=== PATIENT | female | born 1955 | race African-American/Black ===

== ENCOUNTER 2022-07-11 21:17 | Inpatient (IN) | payer MEDICARE, MEDICAID ==
[~2022-07-11] VITALS: Ht 157.5 cm; Wt 180.5 kg
[~2022-07-11 21:17] MED LIST: FURO20TA4 PO; HYDR-459 PO; INSU100V37 SQ; SULF1TAB47 PO; TC025C15 TOP; TRAZ-252 PO
[2022-07-11] MEDS ORDERED: SODIUM CHLORIDE 0.9% 1,000 ML IV ONE (22:00)
[2022-07-11 22:45] LABS: BASOPHILS % 0.6 % (0.0-2.0); EOSINOPHILS % 1.1 % (0.0-5.0); HEMATOCRIT. 37.6 % (36.0-48.0); HEMOGLOBIN. 12.1 g/dL (12.0-16.0); LYMPHOCYTES % 13.3 % (20.0-50.0); MEAN CORPUSCULAR HEMOGLOBIN 25.8 pg (28.0-32.0); MEAN CORPUSCULAR VOLUME 80.4 fL (81.0-99.0); MONOCYTES % 5.4 % (2.0-8.0); NEUTROPHILS % 79.6 % (40.0-76.0); PLATELET 365 x1000/uL (130-400); RED BLOOD CELL COUNT 4.67 mill/uL (4.2-5.4)
[2022-07-11 22:53] LABS: CHLORIDE 101 mEq/L (98-107)
[2022-07-11 23:13] LABS: ETHANOL BLOOD < 10 mg/dL
[2022-07-11 23:16] LABS: CARBAMAZEPINE < 0.5 ug/mL (4-12)
[2022-07-11] MEDS ORDERED: LEVETIRACETAM 1000MG PREMIX 100 ML IV NR (23:45)
[2022-07-12] MEDS ORDERED: MAGNESIUM/ALUMINUM HYDROXIDE/SIMETHICONE 30ML UDC PO PRN (07:00)
[2022-07-12] MEDS ORDERED: KETOROLAC 15MG/ML VIAL IV PRN (07:00)
[2022-07-12] MEDS ORDERED: ACETAMINOPHEN 325MG TABLET PO PRN ×2 (07:00)
[2022-07-12] MEDS ORDERED: ENOXAPARIN 40MG/0.4ML SYR SUBCUT SCH (07:00)
[2022-07-12] MEDS ORDERED: IPRATROPIUM/ALBUTEROL 0.5-3(2.5)MG/3ML NEB NEB PRN (07:00)
[2022-07-12] MEDS ORDERED: DOCUSATE SODIUM 100MG CAPSULE PO PRN (07:00)
[2022-07-12] MEDS ORDERED: DEXTROSE 50% WATER 50ML SYRINGE IV PRN (07:00)
[2022-07-12] MEDS ORDERED: ONDANSETRON HCL 4MG/2ML INJ IV PRN (07:00)
[2022-07-12] MEDS ORDERED: NITROGLYCERIN 0.4MG TABLET SL SL PRN (07:00)
[2022-07-12] MEDS ORDERED: GUAIFENESIN 200MG/10ML SUGAR FREE UDC PO PRN (07:00)
[2022-07-12] MEDS: INSULIN LISPRO 100 UNITS/ML SUBCUT SCH ×3 (07:50→21:00)
[2022-07-12] MEDS: ASPIRIN 325MG EC TABLET PO SCH (09:00)
[2022-07-12] MEDS: BLOOD SUGAR DIAGNOSTIC STRIP TEST SCH ×2 (09:00→21:42)
[2022-07-12] MEDS: LEVETIRACETAM 500MG PREMIX 100 ML IV SCH ×2 (09:00→21:56)
[2022-07-12] MEDS: ENOXAPARIN 40MG/0.4ML SYR SUBCUT SCH ×2 (09:00→21:45)
[2022-07-12] MEDS: FAMOTIDINE 20MG TABLET PO SCH ×2 (09:00→21:44)
[2022-07-12] MEDS: LISINOPRIL 10MG TABLET PO SCH ×2 (09:00→21:44)
[2022-07-12 10:56] LABS: HDL CHOLESTEROL 44 mg/dL (40-59); LDL CHOLESTEROL 78 mg/dL (5-100); T4 FREE 1.92 ng/dL (0.76-1.46); TOTAL IRON BINDING CAPACITY 303 ug/dL (250-450)
[2022-07-12 11:31] LABS: FOLIC ACID (FOLATE) SERUM 13.9 ng/mL (>5.38)
[2022-07-12 12:00] VITALS: BP 151/68
[2022-07-12 15:45] VITALS: BP 151/68
[2022-07-12 16:00] VITALS: BP 146/69
[2022-07-12 20:00] VITALS: BP 188/80
[2022-07-12] MEDS ORDERED: ALBUTEROL (0.083%) 2.5MG/3ML NEB HHN PRN (20:15)
[2022-07-12] MEDS ORDERED: IPRATROPIUM BROMIDE (0.02%) 0.5MG/2.5ML NEB HHN PRN (20:15)
[2022-07-12] MEDS: METHIMAZOLE 5MG TABLET PO SCH (21:44)
[2022-07-12] MEDS: CLONIDINE 0.1MG TABLET PO PRN (21:46)
[2022-07-13] VITALS: BP 163/85
[2022-07-13 04:00] VITALS: BP 160/57
[2022-07-13] MEDS: BLOOD SUGAR DIAGNOSTIC STRIP TEST SCH ×3 (06:40→21:39)
[2022-07-13] MEDS: METHIMAZOLE 5MG TABLET PO SCH ×2 (06:40→23:24)
[2022-07-13] MEDS: INSULIN LISPRO 100 UNITS/ML SUBCUT SCH ×5 (07:40→21:00)
[2022-07-13 08:00] VITALS: BP 153/89
[2022-07-13] MEDS: LEVETIRACETAM 500MG PREMIX 100 ML IV SCH ×3 (09:00→21:30)
[2022-07-13] MEDS: ASPIRIN 325MG EC TABLET PO SCH (10:17)
[2022-07-13] MEDS: FAMOTIDINE 20MG TABLET PO SCH ×2 (10:17→21:33)
[2022-07-13] MEDS: ENOXAPARIN 40MG/0.4ML SYR SUBCUT SCH ×2 (10:18→21:32)
[2022-07-13 12:00] VITALS: BP 139/67
[2022-07-13 14:27] LABS: CHLORIDE 102 mEq/L (98-107)
[2022-07-13 16:00] VITALS: BP 136/58
[2022-07-13 17:40] LABS: BASOPHILS % 0.4 % (0.0-2.0); HEMATOCRIT. 33.4 % (36.0-48.0); HEMOGLOBIN. 10.8 g/dL (12.0-16.0); MEAN CORPUSCULAR HEMOGLOBIN 25.8 pg (28.0-32.0); MEAN CORPUSCULAR VOLUME 80.1 fL (81.0-99.0); MEAN PLATELET VOLUME 8.2 fl (7.4-10.4); MONOCYTES % 6.6 % (2.0-8.0); PLATELET 345 x1000/uL (130-400); RED BLOOD CELL COUNT 4.16 mill/uL (4.2-5.4); RED CELL DISTRIBUTION WIDTH 16.7 % (11.6-14.6)
[2022-07-13 17:50] LABS: CREATINE KINASE 32 IU/L (26-192); CREATINE KINASE MB FRACTION < 1.0 ng/mL (0.5-3.6)
[2022-07-13] MEDS: SODIUM HYPOCHLORITE SOLUTION (0.5%)FULL STRENGTH TOP SCH ×2 (20:00→21:29)
[2022-07-13 20:37] VITALS: BP 140/65
[2022-07-13] MEDS: LISINOPRIL 20MG TABLET PO SCH (21:31)
[2022-07-14 00:39] VITALS: BP 125/65
[2022-07-14 04:00] VITALS: BP 170/56
[2022-07-14] MEDS: METHIMAZOLE 5MG TABLET PO SCH ×3 (05:58→20:50)
[2022-07-14] MEDS: BLOOD SUGAR DIAGNOSTIC STRIP TEST SCH ×4 (05:58→20:36)
[2022-07-14] MEDS: INSULIN LISPRO 100 UNITS/ML SUBCUT SCH ×7 (07:40→20:47)
[2022-07-14 08:01] VITALS: BP 131/55
[2022-07-14] MEDS: FAMOTIDINE 20MG TABLET PO SCH ×2 (08:23→20:47)
[2022-07-14] MEDS: SODIUM HYPOCHLORITE SOLUTION (0.5%)FULL STRENGTH TOP SCH ×2 (08:23→08:25)
[2022-07-14] MEDS: ASPIRIN 325MG EC TABLET PO SCH (08:23)
[2022-07-14] MEDS: LEVETIRACETAM 500MG PREMIX 100 ML IV SCH ×2 (08:23→20:46)
[2022-07-14] MEDS: LISINOPRIL 20MG TABLET PO SCH ×2 (08:24→20:48)
[2022-07-14] MEDS: ENOXAPARIN 40MG/0.4ML SYR SUBCUT SCH ×3 (08:54→20:50)
[2022-07-14 11:50] VITALS: BP 150/42
[2022-07-14 15:42] VITALS: BP 138/60
[2022-07-14 20:00] VITALS: BP 135/61
[2022-07-15] VITALS: BP 149/65
[2022-07-15 04:00] VITALS: BP 184/66
[2022-07-15 04:30] VITALS: BP 170/82
[2022-07-15] MEDS: METHIMAZOLE 5MG TABLET PO SCH ×2 (05:29→13:56)
[2022-07-15] MEDS: CLONIDINE 0.1MG TABLET PO PRN (05:29)
[2022-07-15] MEDS: BLOOD SUGAR DIAGNOSTIC STRIP TEST SCH ×2 (06:51→12:32)
[2022-07-15] MEDS: INSULIN LISPRO 100 UNITS/ML SUBCUT SCH ×4 (07:40→13:10)
[2022-07-15 08:00] VITALS: BP 148/71
[2022-07-15] MEDS: LISINOPRIL 20MG TABLET PO SCH ×2 (09:00→09:47)
[2022-07-15] MEDS: ASPIRIN 325MG EC TABLET PO SCH ×2 (09:00→09:47)
[2022-07-15] MEDS: FAMOTIDINE 20MG TABLET PO SCH ×2 (09:00→09:47)
[2022-07-15] MEDS: ENOXAPARIN 40MG/0.4ML SYR SUBCUT SCH ×2 (09:00→09:48)
[2022-07-15] MEDS: SODIUM HYPOCHLORITE SOLUTION (0.5%)FULL STRENGTH TOP SCH ×2 (09:48)
[2022-07-15] MEDS: LEVETIRACETAM 500MG PREMIX 100 ML IV SCH (09:48)
[2022-07-15 15:10] VITALS: BP 140/80
== END 2022-07-15 15:55 | disposition home or self-care (01) | DRG 100 ==
LOC: ER 21:17 → 7WST 07-12 04:25 → ER 07-12 10:56
PROVIDERS: ADMIT Internal Medicine; ATTEND Internal Medicine
DX: G40.909 Epilepsy, unspecified, not intractable, without status epilepticus (principal); E43 Unspecified severe protein-calorie malnutrition; G92.8 Other toxic encephalopathy; I16.1 Hypertensive emergency; Z68.45 Body mass index [BMI] 70 or greater, adult; L97.409 Non-pressure chronic ulcer of unspecified heel and midfoot with unspecified severity; E11.9 Type 2 diabetes mellitus without complications; I10 Essential (primary) hypertension; E83.51 Hypocalcemia; E78.00 Pure hypercholesterolemia, unspecified; E03.9 Hypothyroidism, unspecified; E11.42 Type 2 diabetes mellitus with diabetic polyneuropathy; E11.621 Type 2 diabetes mellitus with foot ulcer; Z79.4 Long term (current) use of insulin; Z74.01 Bed confinement status
CPT/HCPCS: 36415; 71045; 73630; 80053; 80061; 80156; 80165; 80185; 80320; 82550; 82553; 82607; 82746; 82962; 83036; 83540; 83550; 83735; 84100; 84439; 84443; 84484; 85025; 93923; 93970; 99291; J1650; J1815; J1953; J7030; A4315; G0480

== ENCOUNTER 2022-07-25 00:37 | Inpatient (IN) | payer MEDICARE, MEDICAID ==
[~2022-07-25] VITALS: Ht 157.5 cm; Wt 126.1 kg
[2022-07-25] MEDS ORDERED: ONDANSETRON HCL 4MG/2ML INJ IV STA (00:57)
[2022-07-25] MEDS ORDERED: LEVETIRACETAM 1000MG PREMIX 100 ML IV ONE (01:00)
[2022-07-25 02:18] LABS: BASOPHILS % 0.7 % (0.0-2.0); HEMATOCRIT. 38.3 % (36.0-48.0); HEMOGLOBIN. 12.2 g/dL (12.0-16.0); LYMPHOCYTES % 8.1 % (20.0-50.0); MEAN CORPUSCULAR HEMOGLOBIN 25.6 pg (28.0-32.0); MEAN CORPUSCULAR VOLUME 80.6 fL (81.0-99.0); MEAN PLATELET VOLUME 8.4 fl (7.4-10.4); MONOCYTES % 8.2 % (2.0-8.0); PLATELET 383 x1000/uL (130-400); RED BLOOD CELL COUNT 4.75 mill/uL (4.2-5.4); RED CELL DISTRIBUTION WIDTH 17.6 % (11.6-14.6)
[2022-07-25 02:22] LABS: CHLORIDE 102 mEq/L (98-107)
[2022-07-25] MEDS ORDERED: DEXTROSE 50% WATER 50ML SYRINGE IV NR (03:00)
[2022-07-25 04:53] LABS: CLARITY URINE TURBID (CLEAR); COLOR URINE DARK YELLOW (YELLOW); KETONES URINE TRACE (NEGATIVE); LEUKOCYTE ESTERASE URINE 2+ (NEGATIVE); NITRITE URINE NEGATIVE (NEGATIVE); OCCULT BLOOD URINE 3+ (NEGATIVE); PH URINE 5.5 (4.5-8.0); PROTEIN URINE 4+ (NEGATIVE); SPECIFIC GRAVITY URINE 1.028 (1.005-1.030)
[2022-07-25] MEDS ORDERED: MAGNESIUM/ALUMINUM HYDROXIDE/SIMETHICONE 30ML UDC PO PRN (07:15)
[2022-07-25] MEDS ORDERED: ACETAMINOPHEN 325MG TABLET PO PRN (07:15)
[2022-07-25] MEDS ORDERED: GUAIFENESIN 200MG/10ML SUGAR FREE UDC PO PRN (07:15)
[2022-07-25] MEDS ORDERED: IPRATROPIUM/ALBUTEROL 0.5-3(2.5)MG/3ML NEB NEB PRN (07:15)
[2022-07-25] MEDS ORDERED: NA PHOS,M-B/NA PHOS,DI-BA ENEMA 118ML PR PRN (07:15)
[2022-07-25] MEDS ORDERED: DOCUSATE SODIUM 100MG CAPSULE PO PRN (07:15)
[2022-07-25] MEDS ORDERED: DEXTROSE 50% WATER 50ML SYRINGE IV PRN (07:15)
[2022-07-25] MEDS ORDERED: NITROGLYCERIN 0.4MG TABLET SL SL PRN (07:15)
[2022-07-25] MEDS ORDERED: LEVETIRACETAM 500MG PREMIX 100 ML IV SCH (09:00)
[2022-07-25] MEDS ORDERED: SODIUM CHLORIDE 0.9% 1000ML BAG (SEPSIS BOLUS) IV ONE (09:45)
[2022-07-25] MEDS: INSULIN GLARGINE 100 UNITS/ML SUBCUT SCH ×2 (10:00→12:31)
[2022-07-25] MEDS ORDERED: PIPERACILLIN/TAZ 3.375G PREMIX 50 ML IV NR (10:00)
[2022-07-25 10:30] VITALS: BP 151/72
[2022-07-25] MEDS ORDERED: VANCOMYCIN 2,000 MG in DEXT 5% WATER 500 ML IV SCH (11:00)
[2022-07-25] MEDS: BLOOD SUGAR DIAGNOSTIC STRIP TEST SCH ×3 (11:40→21:11)
[2022-07-25] MEDS: INSULIN LISPRO 100 UNITS/ML SUBCUT SCH ×3 (11:40→20:14)
[2022-07-25] MEDS: ZINC SULFATE 220 MG ( 50 ) CAPSULE PO SCH (12:25)
[2022-07-25] MEDS: LISINOPRIL 20MG TABLET PO SCH ×2 (12:26→21:00)
[2022-07-25] MEDS: ASPIRIN 325MG EC TABLET PO SCH (12:26)
[2022-07-25] MEDS: ENOXAPARIN 40MG/0.4ML SYR SUBCUT SCH (12:27)
[2022-07-25] MEDS: ASCORBIC ACID 500 MG TABLET PO SCH ×2 (12:29→21:00)
[2022-07-25] MEDS: FAMOTIDINE 20MG TABLET PO SCH (12:29)
[2022-07-25] MEDS: PIPERACILLIN/TAZOBACTAM 3.375G in DEXT 5% WATER 50ML IV SCH (16:30)
[2022-07-25 19:00] LABS: *AMPHETAMINES SCREEN URINE NEGATIVE (NEGATIVE); *BARBITURATES SCREEN URINE NEGATIVE (NEGATIVE); *BENZODIAZEPINES SCREEN URINE NEGATIVE (NEGATIVE); *COCAINE SCREEN URINE NEGATIVE (NEGATIVE); CANNABINOID URINE SCREEN NEGATIVE (NEGATIVE); METHADONE URINE SCREEN NEGATIVE (NEGATIVE); OPIATES URINE SCREEN NEGATIVE (NEGATIVE); PHENCYCLIDINE URINE SCREEN NEGATIVE (NEGATIVE)
[2022-07-25 20:00] VITALS: BP 157/88
[2022-07-25] MEDS ORDERED: ZOLPIDEM TARTRATE 5MG TABLET PO PRN (21:00)
[2022-07-25] MEDS ORDERED: IPRATROPIUM BROMIDE (0.02%) 0.5MG/2.5ML NEB HHN PRN (23:00)
[2022-07-25] MEDS ORDERED: ALBUTEROL (0.083%) 2.5MG/3ML NEB HHN PRN (23:00)
[2022-07-25] MEDS: LEVETIRACETAM 500MG PREMIX 100 ML IV SCH (23:20)
[2022-07-26] VITALS: BP 158/71
[2022-07-26] MEDS: PIPERACILLIN/TAZOBACTAM 3.375G in DEXT 5% WATER 50ML IV SCH ×4 (01:45→22:43)
[2022-07-26 04:00] VITALS: BP 129/64
[2022-07-26 06:14] LABS: CHLORIDE 99 mEq/L (98-107)
[2022-07-26 06:23] LABS: BASOPHILS % 0.7 % (0.0-2.0); EOSINOPHILS % 0.6 % (0.0-5.0); HEMATOCRIT. 36.8 % (36.0-48.0); HEMOGLOBIN. 11.8 g/dL (12.0-16.0); LYMPHOCYTES % 20.2 % (20.0-50.0); MEAN CORPUSCULAR HEMOGLOBIN 25.7 pg (28.0-32.0); MEAN CORPUSCULAR VOLUME 80.1 fL (81.0-99.0); MEAN PLATELET VOLUME 8.3 fl (7.4-10.4); MONOCYTES % 7.9 % (2.0-8.0); NEUTROPHILS % 70.6 % (40.0-76.0); PLATELET 326 x1000/uL (130-400); RED CELL DISTRIBUTION WIDTH 17.4 % (11.6-14.6)
[2022-07-26 06:36] LABS: CREATINE KINASE 48 IU/L (26-192); CREATINE KINASE MB FRACTION 1.5 ng/mL (0.5-3.6); PHOSPHORUS 3.8 mg/dL (2.5-4.9)
[2022-07-26] MEDS: INSULIN LISPRO 100 UNITS/ML SUBCUT SCH ×7 (06:40→20:44)
[2022-07-26] MEDS: BLOOD SUGAR DIAGNOSTIC STRIP TEST SCH ×4 (06:53→20:45)
[2022-07-26 08:00] VITALS: BP 117/61
[2022-07-26] MEDS: LEVETIRACETAM 500MG PREMIX 100 ML IV SCH ×2 (09:39→20:46)
[2022-07-26] MEDS: ASCORBIC ACID 500 MG TABLET PO SCH ×2 (09:42→20:45)
[2022-07-26] MEDS: ZINC SULFATE 220 MG ( 50 ) CAPSULE PO SCH (09:42)
[2022-07-26] MEDS: ASPIRIN 325MG EC TABLET PO SCH (09:42)
[2022-07-26] MEDS: FAMOTIDINE 20MG TABLET PO SCH (09:43)
[2022-07-26] MEDS: LISINOPRIL 20MG TABLET PO SCH ×2 (09:52→20:45)
[2022-07-26] MEDS: INSULIN GLARGINE 100 UNITS/ML SUBCUT SCH (10:00)
[2022-07-26] MEDS ORDERED: POTASSIUM CHLORIDE 20MEQ TABLET SR PO NR (11:00)
[2022-07-26 12:00] VITALS: BP 161/83
[2022-07-26] MEDS: ENOXAPARIN 40MG/0.4ML SYR SUBCUT SCH (13:22)
[2022-07-26 16:00] VITALS: BP 151/81
[2022-07-26 20:00] VITALS: BP 180/76
[2022-07-27] VITALS: BP 149/69
[2022-07-27 04:00] VITALS: BP 149/68
[2022-07-27] MEDS: INSULIN LISPRO 100 UNITS/ML SUBCUT SCH ×7 (06:02→21:00)
[2022-07-27] MEDS: BLOOD SUGAR DIAGNOSTIC STRIP TEST SCH ×4 (06:02→21:33)
[2022-07-27] MEDS: PIPERACILLIN/TAZOBACTAM 3.375G in DEXT 5% WATER 50ML IV SCH ×3 (06:05→22:26)
[2022-07-27 08:00] VITALS: BP 160/73
[2022-07-27] MEDS: INSULIN GLARGINE 100 UNITS/ML SUBCUT SCH (10:00)
[2022-07-27] MEDS: ZINC SULFATE 220 MG ( 50 ) CAPSULE PO SCH (10:29)
[2022-07-27] MEDS: FAMOTIDINE 20MG TABLET PO SCH (10:29)
[2022-07-27] MEDS: ASPIRIN 325MG EC TABLET PO SCH (10:29)
[2022-07-27] MEDS: LISINOPRIL 20MG TABLET PO SCH ×2 (10:30→21:31)
[2022-07-27] MEDS: ASCORBIC ACID 500 MG TABLET PO SCH ×2 (10:30→21:31)
[2022-07-27] MEDS: LEVETIRACETAM 500MG PREMIX 100 ML IV SCH ×2 (10:30→21:33)
[2022-07-27] MEDS: ENOXAPARIN 40MG/0.4ML SYR SUBCUT SCH (10:48)
[2022-07-27] MEDS: SODIUM HYPOCHLORITE SOLUTION (0.5%)FULL STRENGTH TOP SCH (10:48)
[2022-07-27] MEDS ORDERED: LIDOCAINE HCL 4% (40MG/ML) SOLN 50ML TOP NR (11:00)
[2022-07-27 12:00] VITALS: BP 152/60
[2022-07-27] MEDS: SODIUM HYPOCHLORITE 0.125% 473ML SOLUTION TOP SCH (13:54)
[2022-07-27] MEDS ORDERED: VANCOMYCIN 750MG PREMIX 150 ML IV NR (14:00)
[2022-07-27 16:00] VITALS: BP 150/65
[2022-07-27 20:00] VITALS: BP 163/63
[2022-07-28] VITALS: BP 192/99
[2022-07-28] MEDS: CLONIDINE 0.1MG TABLET PO PRN ×2 (00:41→08:36)
[2022-07-28 04:00] VITALS: BP 181/74
[2022-07-28] MEDS: PIPERACILLIN/TAZOBACTAM 3.375G in DEXT 5% WATER 50ML IV SCH ×3 (05:43→22:17)
[2022-07-28] MEDS: BLOOD SUGAR DIAGNOSTIC STRIP TEST SCH ×4 (06:11→21:00)
[2022-07-28] MEDS: INSULIN LISPRO 100 UNITS/ML SUBCUT SCH ×7 (06:12→21:00)
[2022-07-28 08:00] VITALS: BP 185/76
[2022-07-28] MEDS: ZINC SULFATE 220 MG ( 50 ) CAPSULE PO SCH (08:35)
[2022-07-28] MEDS: ASCORBIC ACID 500 MG TABLET PO SCH ×2 (08:35→21:49)
[2022-07-28] MEDS: ASPIRIN 325MG EC TABLET PO SCH (08:35)
[2022-07-28] MEDS: FAMOTIDINE 20MG TABLET PO SCH (08:35)
[2022-07-28] MEDS: LISINOPRIL 20MG TABLET PO SCH ×2 (08:36→21:49)
[2022-07-28] MEDS: SODIUM HYPOCHLORITE 0.125% 473ML SOLUTION TOP SCH (08:37)
[2022-07-28] MEDS: SODIUM HYPOCHLORITE SOLUTION (0.5%)FULL STRENGTH TOP SCH (08:37)
[2022-07-28] MEDS: INSULIN GLARGINE 100 UNITS/ML SUBCUT SCH (10:00)
[2022-07-28] MEDS: LEVETIRACETAM 500MG PREMIX 100 ML IV SCH ×2 (10:20→21:50)
[2022-07-28] MEDS: ENOXAPARIN 40MG/0.4ML SYR SUBCUT SCH (10:59)
[2022-07-28 12:00] VITALS: BP 151/73
[2022-07-28 16:00] VITALS: BP 152/60
[2022-07-28] MEDS ORDERED: VANCOMYCIN 750MG PREMIX 150 ML IV NR (18:00)
[2022-07-28 20:00] VITALS: BP 147/46
[2022-07-29] VITALS: BP 154/64
[2022-07-29 04:00] VITALS: BP 152/62
[2022-07-29] MEDS: PIPERACILLIN/TAZOBACTAM 3.375G in DEXT 5% WATER 50ML IV SCH ×3 (06:05→22:50)
[2022-07-29] MEDS: BLOOD SUGAR DIAGNOSTIC STRIP TEST SCH ×4 (06:37→20:57)
[2022-07-29] MEDS: INSULIN LISPRO 100 UNITS/ML SUBCUT SCH ×7 (06:38→20:58)
[2022-07-29 08:00] VITALS: BP 147/60
[2022-07-29] MEDS: ZINC SULFATE 220 MG ( 50 ) CAPSULE PO SCH (09:06)
[2022-07-29] MEDS: ASCORBIC ACID 500 MG TABLET PO SCH ×2 (09:06→20:47)
[2022-07-29] MEDS: LEVETIRACETAM 500MG PREMIX 100 ML IV SCH ×2 (09:06→20:45)
[2022-07-29] MEDS: ASPIRIN 325MG EC TABLET PO SCH (09:06)
[2022-07-29] MEDS: FAMOTIDINE 20MG TABLET PO SCH (09:08)
[2022-07-29] MEDS: SODIUM HYPOCHLORITE 0.125% 473ML SOLUTION TOP SCH (09:09)
[2022-07-29] MEDS: LISINOPRIL 20MG TABLET PO SCH ×2 (09:13→20:46)
[2022-07-29] MEDS: INSULIN GLARGINE 100 UNITS/ML SUBCUT SCH (10:00)
[2022-07-29 12:00] VITALS: BP 177/60
[2022-07-29] MEDS: ENOXAPARIN 40MG/0.4ML SYR SUBCUT SCH (12:39)
[2022-07-29] MEDS: CLONIDINE 0.1MG TABLET PO PRN (14:00)
[2022-07-29 16:00] VITALS: BP 148/64
[2022-07-29] MEDS: VANCOMYCIN 750MG PREMIX 150 ML IV SCH (18:00)
[2022-07-29 20:00] VITALS: BP 164/79
[2022-07-30] VITALS: BP 164/69
[2022-07-30] MEDS: CLONIDINE 0.1MG TABLET PO PRN ×2 (00:41→05:06)
[2022-07-30 04:00] VITALS: BP 163/80
[2022-07-30] MEDS: PIPERACILLIN/TAZOBACTAM 3.375G in DEXT 5% WATER 50ML IV SCH (05:04)
[2022-07-30] MEDS: BLOOD SUGAR DIAGNOSTIC STRIP TEST SCH ×4 (06:09→21:00)
[2022-07-30] MEDS: INSULIN LISPRO 100 UNITS/ML SUBCUT SCH ×7 (06:25→22:49)
[2022-07-30 08:12] VITALS: BP 166/63
[2022-07-30] MEDS: LISINOPRIL 20MG TABLET PO SCH ×2 (08:20→21:00)
[2022-07-30] MEDS: LEVETIRACETAM 500MG PREMIX 100 ML IV SCH ×2 (08:20→22:48)
[2022-07-30] MEDS: ZINC SULFATE 220 MG ( 50 ) CAPSULE PO SCH (08:20)
[2022-07-30] MEDS: ASCORBIC ACID 500 MG TABLET PO SCH ×2 (08:20→21:00)
[2022-07-30] MEDS: FAMOTIDINE 20MG TABLET PO SCH (08:20)
[2022-07-30] MEDS: ASPIRIN 325MG EC TABLET PO SCH (08:20)
[2022-07-30] MEDS: SODIUM HYPOCHLORITE 0.125% 473ML SOLUTION TOP SCH (08:21)
[2022-07-30] MEDS: SODIUM HYPOCHLORITE SOLUTION (0.5%)FULL STRENGTH TOP SCH (08:21)
[2022-07-30] MEDS: AMLODIPINE 5MG TABLET PO SCH ×2 (10:15→21:00)
[2022-07-30] MEDS: INSULIN GLARGINE 100 UNITS/ML SUBCUT SCH (10:16)
[2022-07-30 12:00] VITALS: BP 123/50
[2022-07-30] MEDS: ENOXAPARIN 40MG/0.4ML SYR SUBCUT SCH (13:01)
[2022-07-30 16:00] VITALS: BP 117/60
[2022-07-30] MEDS: VANCOMYCIN 750MG PREMIX 150 ML IV SCH (18:00)
[2022-07-30 20:00] VITALS: BP 153/71
[2022-07-30] MEDS: ONDANSETRON HCL 4MG/2ML INJ IV PRN (22:47)
[2022-07-30] MEDS: PANTOPRAZOLE SODIUM 40 MG/VIAL IV SCH (22:53)
[2022-07-31] VITALS (8 sets, daily range): BP systolic 100–164; BP diastolic 42–71
[2022-07-31] MEDS: ONDANSETRON HCL 4MG/2ML INJ IV PRN (03:48)
[2022-07-31 06:35] LABS: BASOPHILS % 0.2 % (0.0-2.0); HEMATOCRIT. 29.3 % (36.0-48.0); HEMOGLOBIN. 9.8 g/dL (12.0-16.0); LYMPHOCYTES % 11.2 % (20.0-50.0); MEAN CORPUSCULAR HEMOGLOBIN 26.6 pg (28.0-32.0); MEAN CORPUSCULAR VOLUME 79.9 fL (81.0-99.0); MONOCYTES % 1.9 % (2.0-8.0); NEUTROPHILS % 86.7 % (40.0-76.0); PLATELET 367 x1000/uL (130-400); RED BLOOD CELL COUNT 3.67 mill/uL (4.2-5.4); RED CELL DISTRIBUTION WIDTH 17.5 % (11.6-14.6)
[2022-07-31] MEDS: INSULIN LISPRO 100 UNITS/ML SUBCUT SCH ×7 (06:40→20:54)
[2022-07-31] MEDS: BLOOD SUGAR DIAGNOSTIC STRIP TEST SCH ×4 (06:59→20:54)
[2022-07-31 08:40] LABS: CHLORIDE 105 mEq/L (98-107)
[2022-07-31] MEDS: ASCORBIC ACID 500 MG TABLET PO SCH ×2 (09:01→20:54)
[2022-07-31] MEDS: LEVETIRACETAM 500MG PREMIX 100 ML IV SCH ×2 (09:01→20:59)
[2022-07-31] MEDS: ZINC SULFATE 220 MG ( 50 ) CAPSULE PO SCH (09:01)
[2022-07-31] MEDS: PANTOPRAZOLE SODIUM 40 MG/VIAL IV SCH ×2 (09:01→20:59)
[2022-07-31] MEDS: LISINOPRIL 20MG TABLET PO SCH ×2 (09:02→20:54)
[2022-07-31] MEDS: SODIUM HYPOCHLORITE SOLUTION (0.5%)FULL STRENGTH TOP SCH (09:02)
[2022-07-31] MEDS: AMLODIPINE 5MG TABLET PO SCH ×2 (09:02→20:54)
[2022-07-31] MEDS: SODIUM HYPOCHLORITE 0.125% 473ML SOLUTION TOP SCH (09:02)
[2022-07-31] MEDS: PIPERACILLIN/TAZOBACTAM 3.375 G in DEXTROSE 5% WATER 50 ML IV SCH ×3 (09:51→21:33)
[2022-07-31] MEDS ORDERED: VANCOMYCIN 1.25GM PMX (XELLIA) 250 ML IV SCH (10:00)
[2022-07-31] MEDS: INSULIN GLARGINE 100 UNITS/ML SUBCUT SCH (11:13)
[2022-07-31] MEDS: ACETAMINOPHEN 325MG TABLET PO PRN (14:10)
[2022-07-31] MEDS: SODIUM CHLORIDE 0.9% 1,000 ML IV SCH (18:18)
[2022-07-31 19:25] LABS: TOTAL IRON BINDING CAPACITY 156 ug/dL (250-450)
[2022-07-31] MEDS ORDERED: IOHEXOL-350 100 ML BOTTLE ONE ×2 (20:18→23:17)
[2022-07-31 21:52] LABS: INR 1.2; PROTHROMBIN TIME 12.3 sec (9.6-11.0)
[2022-07-31 21:53] LABS: HEMATOCRIT 21.7 % (36.0-48.0); HEMOGLOBIN 6.9 g/dL (12.0-16.0)
[2022-07-31 22:14] LABS: FERRITIN 139 ng/mL (10-291)
[2022-07-31 22:26] LABS: VITAMIN B12 SERUM 542 pg/mL (211-911)
[2022-08-01] VITALS (9 sets, daily range): BP systolic 122–154; BP diastolic 40–91
[2022-08-01 05:23] LABS: BASOPHILS % 0.3 % (0.0-2.0); EOSINOPHILS % 0.1 % (0.0-5.0); HEMATOCRIT. 26.1 % (36.0-48.0); HEMOGLOBIN. 8.5 g/dL (12.0-16.0); LYMPHOCYTES % 24.5 % (20.0-50.0); MEAN CORPUSCULAR HEMOGLOBIN 26.2 pg (28.0-32.0); MEAN CORPUSCULAR VOLUME 80.3 fL (81.0-99.0); MEAN PLATELET VOLUME 7.7 fl (7.4-10.4); MONOCYTES % 6.2 % (2.0-8.0); NEUTROPHILS % 68.9 % (40.0-76.0); PLATELET 302 x1000/uL (130-400); RED BLOOD CELL COUNT 3.25 mill/uL (4.2-5.4); RED CELL DISTRIBUTION WIDTH 17.1 % (11.6-14.6)
[2022-08-01] MEDS: PIPERACILLIN/TAZOBACTAM 3.375 G in DEXTROSE 5% WATER 50 ML IV SCH ×3 (05:38→22:39)
[2022-08-01 05:49] LABS: INR 1.1; PROTHROMBIN TIME 11.6 sec (9.6-11.0)
[2022-08-01 06:03] LABS: CHLORIDE 103 mEq/L (98-107)
[2022-08-01] MEDS: INSULIN LISPRO 100 UNITS/ML SUBCUT SCH ×7 (06:40→21:14)
[2022-08-01] MEDS: BLOOD SUGAR DIAGNOSTIC STRIP TEST SCH ×4 (06:40→21:14)
[2022-08-01] MEDS: SODIUM CHLORIDE 0.9% 1,000 ML IV SCH ×2 (06:48→21:11)
[2022-08-01] MEDS: ZINC SULFATE 220 MG ( 50 ) CAPSULE PO SCH (09:00)
[2022-08-01] MEDS: ASCORBIC ACID 500 MG TABLET PO SCH ×2 (09:00→21:00)
[2022-08-01] MEDS: AMLODIPINE 5MG TABLET PO SCH ×2 (09:01→21:00)
[2022-08-01] MEDS: LEVETIRACETAM 500MG PREMIX 100 ML IV SCH ×2 (09:01→21:10)
[2022-08-01] MEDS: PANTOPRAZOLE SODIUM 40 MG/VIAL IV SCH ×2 (09:03→21:26)
[2022-08-01] MEDS: LISINOPRIL 20MG TABLET PO SCH ×2 (09:03→21:00)
[2022-08-01] MEDS: INSULIN GLARGINE 100 UNITS/ML SUBCUT SCH (10:00)
[2022-08-01] MEDS ORDERED: VANCOMYCIN 750MG PREMIX 150 ML IV SCH (11:00)
[2022-08-01] MEDS: SODIUM HYPOCHLORITE 0.125% 473ML SOLUTION TOP SCH (11:42)
[2022-08-01] MEDS ORDERED: LIDOCAINE HCL 1% 10 MG/ML 10ML VIAL ONE (16:25)
[2022-08-01] MEDS ORDERED: SODIUM CHLORIDE 0.9% 1,000 ML IV ONE (18:15)
[2022-08-01] MEDS: SUCRALFATE 1 G/10 ML UDC PO SCH (21:00)
[2022-08-02] VITALS: BP 141/69
[2022-08-02 04:00] VITALS: BP 139/56
[2022-08-02] MEDS: INSULIN LISPRO 100 UNITS/ML SUBCUT SCH ×7 (06:20→21:00)
[2022-08-02] MEDS: SUCRALFATE 1 G/10 ML UDC PO SCH ×4 (06:20→20:34)
[2022-08-02] MEDS: BLOOD SUGAR DIAGNOSTIC STRIP TEST SCH ×4 (06:20→21:23)
[2022-08-02] MEDS: PIPERACILLIN/TAZOBACTAM 3.375 G in DEXTROSE 5% WATER 50 ML IV SCH ×3 (06:21→22:46)
[2022-08-02 08:00] VITALS: BP 158/53
[2022-08-02] MEDS: AMLODIPINE 5MG TABLET PO SCH ×2 (09:00→20:34)
[2022-08-02] MEDS: SODIUM HYPOCHLORITE 0.125% 473ML SOLUTION TOP SCH (09:00)
[2022-08-02] MEDS: LISINOPRIL 20MG TABLET PO SCH ×2 (09:00→20:34)
[2022-08-02] MEDS: ZINC SULFATE 220 MG ( 50 ) CAPSULE PO SCH (10:44)
[2022-08-02] MEDS: ACETAMINOPHEN 325MG TABLET PO PRN (10:46)
[2022-08-02] MEDS: ASCORBIC ACID 500 MG TABLET PO SCH ×2 (10:46→20:33)
[2022-08-02] MEDS: SODIUM HYPOCHLORITE SOLUTION (0.5%)FULL STRENGTH TOP SCH ×2 (10:49→10:50)
[2022-08-02] MEDS: LEVETIRACETAM 500MG PREMIX 100 ML IV SCH ×2 (10:49→20:34)
[2022-08-02] MEDS: PANTOPRAZOLE SODIUM 40 MG/VIAL IV SCH ×2 (10:50→20:33)
[2022-08-02] MEDS: INSULIN GLARGINE 100 UNITS/ML SUBCUT SCH (11:51)
[2022-08-02 12:00] VITALS: BP 102/63
[2022-08-02] MEDS: SODIUM CHLORIDE 0.9% 1,000 ML IV SCH ×3 (12:00→23:35)
[2022-08-02 16:00] VITALS: BP 146/72
[2022-08-02 20:00] VITALS: BP 178/75
[2022-08-02] MEDS: ATORVASTATIN CALCIUM 40MG TABLET PO SCH (20:33)
[2022-08-02 22:04] LABS: BASOPHILS % 0.4 % (0.0-2.0); HEMATOCRIT. 22.1 % (36.0-48.0); HEMOGLOBIN. 7.1 g/dL (12.0-16.0); LYMPHOCYTES % 17.2 % (20.0-50.0); MEAN CORPUSCULAR HEMOGLOBIN 26.4 pg (28.0-32.0); MEAN CORPUSCULAR VOLUME 81.9 fL (81.0-99.0); MEAN PLATELET VOLUME 7.9 fl (7.4-10.4); MONOCYTES % 6.4 % (2.0-8.0); PLATELET 278 x1000/uL (130-400); RED CELL DISTRIBUTION WIDTH 17.1 % (11.6-14.6)
[2022-08-03] VITALS: BP 169/57
[2022-08-03] MEDS: CLONIDINE 0.1MG TABLET PO PRN (01:27)
[2022-08-03 04:00] VITALS: BP 169/75
[2022-08-03] MEDS: PIPERACILLIN/TAZOBACTAM 3.375 G in DEXTROSE 5% WATER 50 ML IV SCH ×3 (05:33→22:36)
[2022-08-03] MEDS: SUCRALFATE 1 G/10 ML UDC PO SCH ×4 (06:37→21:09)
[2022-08-03] MEDS: INSULIN LISPRO 100 UNITS/ML SUBCUT SCH ×6 (06:46→21:00)
[2022-08-03] MEDS: BLOOD SUGAR DIAGNOSTIC STRIP TEST SCH ×4 (06:46→21:00)
[2022-08-03 08:00] VITALS: BP 129/39
[2022-08-03] MEDS: LISINOPRIL 20MG TABLET PO SCH ×2 (09:55→21:09)
[2022-08-03] MEDS: ASCORBIC ACID 500 MG TABLET PO SCH ×2 (09:55→21:09)
[2022-08-03] MEDS: ZINC SULFATE 220 MG ( 50 ) CAPSULE PO SCH (09:55)
[2022-08-03] MEDS: LEVETIRACETAM 500MG PREMIX 100 ML IV SCH ×2 (09:55→21:53)
[2022-08-03] MEDS: PANTOPRAZOLE SODIUM 40 MG/VIAL IV SCH ×2 (09:55→21:10)
[2022-08-03] MEDS: SODIUM HYPOCHLORITE 0.125% 473ML SOLUTION TOP SCH (09:56)
[2022-08-03] MEDS: SODIUM HYPOCHLORITE SOLUTION (0.5%)FULL STRENGTH TOP SCH (09:56)
[2022-08-03] MEDS: AMLODIPINE 5MG TABLET PO SCH ×2 (09:56→21:10)
[2022-08-03] MEDS: INSULIN GLARGINE 100 UNITS/ML SUBCUT SCH (10:00)
[2022-08-03 10:52] LABS: BASOPHILS % 0.4 % (0.0-2.0); EOSINOPHILS % 1.1 % (0.0-5.0); HEMATOCRIT. 23.2 % (36.0-48.0); HEMOGLOBIN. 7.7 g/dL (12.0-16.0); LYMPHOCYTES % 19.1 % (20.0-50.0); MEAN CORPUSCULAR HEMOGLOBIN 26.9 pg (28.0-32.0); MEAN CORPUSCULAR VOLUME 81.5 fL (81.0-99.0); MEAN PLATELET VOLUME 7.9 fl (7.4-10.4); MONOCYTES % 5.7 % (2.0-8.0); NEUTROPHILS % 73.7 % (40.0-76.0); PLATELET 301 x1000/uL (130-400); RED BLOOD CELL COUNT 2.85 mill/uL (4.2-5.4); RED CELL DISTRIBUTION WIDTH 17.3 % (11.6-14.6)
[2022-08-03 12:00] VITALS: BP 128/44
[2022-08-03] MEDS: SODIUM CHLORIDE 0.9% 1,000 ML IV SCH (13:44)
[2022-08-03 16:00] VITALS: BP 155/54
[2022-08-03] MEDS ORDERED: VANCOMYCIN 1.25GM PMX (XELLIA) 250 ML IV SCH (18:00)
[2022-08-03 20:00] VITALS: BP 149/80
[2022-08-03] MEDS: ATORVASTATIN CALCIUM 40MG TABLET PO SCH (21:09)
[2022-08-04] VITALS: BP 147/54
[2022-08-04] MEDS: SODIUM CHLORIDE 0.9% 1,000 ML IV SCH ×2 (02:15→15:23)
[2022-08-04 04:00] VITALS: BP 124/68
[2022-08-04] MEDS: PIPERACILLIN/TAZOBACTAM 3.375 G in DEXTROSE 5% WATER 50 ML IV SCH ×2 (05:17→17:37)
[2022-08-04] MEDS: INSULIN LISPRO 100 UNITS/ML SUBCUT SCH ×4 (05:26→17:07)
[2022-08-04] MEDS: BLOOD SUGAR DIAGNOSTIC STRIP TEST SCH ×3 (05:27→17:07)
[2022-08-04] MEDS: SUCRALFATE 1 G/10 ML UDC PO SCH ×3 (06:24→17:37)
[2022-08-04 08:00] VITALS: BP 141/63
[2022-08-04] MEDS: ASCORBIC ACID 500 MG TABLET PO SCH (08:53)
[2022-08-04] MEDS: AMLODIPINE 5MG TABLET PO SCH (08:53)
[2022-08-04] MEDS: ZINC SULFATE 220 MG ( 50 ) CAPSULE PO SCH (08:53)
[2022-08-04] MEDS: LISINOPRIL 20MG TABLET PO SCH (08:54)
[2022-08-04] MEDS: SODIUM HYPOCHLORITE SOLUTION (0.5%)FULL STRENGTH TOP SCH (08:55)
[2022-08-04] MEDS: SODIUM HYPOCHLORITE 0.125% 473ML SOLUTION TOP SCH (08:55)
[2022-08-04] MEDS ORDERED: METRONIDAZOLE 500MG TABLET PO SCH (10:00)
[2022-08-04] MEDS ORDERED: LOPERAMIDE HCL 2MG CAPSULE PO PRN (10:45)
[2022-08-04 10:46] LABS: BASOPHILS % 0.4 % (0.0-2.0); EOSINOPHILS % 1.8 % (0.0-5.0); HEMATOCRIT. 23.7 % (36.0-48.0); HEMOGLOBIN. 7.6 g/dL (12.0-16.0); LYMPHOCYTES % 17.2 % (20.0-50.0); MEAN CORPUSCULAR HEMOGLOBIN 26.7 pg (28.0-32.0); MEAN CORPUSCULAR VOLUME 83.3 fL (81.0-99.0); MONOCYTES % 4.9 % (2.0-8.0); NEUTROPHILS % 75.7 % (40.0-76.0); PLATELET 302 x1000/uL (130-400); RED BLOOD CELL COUNT 2.85 mill/uL (4.2-5.4); RED CELL DISTRIBUTION WIDTH 17.2 % (11.6-14.6)
[2022-08-04] MEDS ORDERED: LOPERAMIDE 2MG/15ML UDC PO NR (11:30)
[2022-08-04] MEDS ORDERED: LOPERAMIDE HCL 1 MG/7.5 ML PO NR (11:30)
[2022-08-04] MEDS: INSULIN GLARGINE 100 UNITS/ML SUBCUT SCH (11:35)
[2022-08-04 12:00] VITALS: BP 146/56
[2022-08-04] MEDS ORDERED: CEFTRIAXONE 2GM DUPLEX 50 ML IV SCH (12:00)
[2022-08-04] MEDS ORDERED: LIDOCAINE HCL 1% 30ML VIAL (10MG/ML) ONE (12:49)
[2022-08-04 15:00] VITALS: BP 132/59
[2022-08-04] MEDS: PANTOPRAZOLE SODIUM 40 MG/VIAL IV SCH (15:21)
[2022-08-04] MEDS: LEVETIRACETAM 500MG PREMIX 100 ML IV SCH (15:22)
[2022-08-04 16:00] VITALS: BP 132/59
== END 2022-08-04 18:08 | DRG 853 ==
LOC: ER 00:37 → 7EST 04:33 → EDBEDREQ 04:36 → EDBEDREQTM 04:36 → ENRESERV 07:42
PROVIDERS: ADMIT Internal Medicine; ATTEND Internal Medicine
PROC: 0JBL0ZZ Excision of Right Upper Leg Subcutaneous Tissue and Fascia, Open Approach (ICD-10-PCS; principal; 2022-07-27)
PROC: 0JB70ZZ Excision of Back Subcutaneous Tissue and Fascia, Open Approach (ICD-10-PCS; 2022-07-27)
PROC: 30233N1 Transfusion of Nonautologous Red Blood Cells into Peripheral Vein, Percutaneous Approach (ICD-10-PCS; 2022-07-31)
PROC: 0DB78ZX Excision of Stomach, Pylorus, Via Natural or Artificial Opening Endoscopic, Diagnostic (ICD-10-PCS; 2022-08-01)
PROC: 0JB70ZZ Excision of Back Subcutaneous Tissue and Fascia, Open Approach (ICD-10-PCS; 2022-08-02)
PROC: 0JBL0ZZ Excision of Right Upper Leg Subcutaneous Tissue and Fascia, Open Approach (ICD-10-PCS; 2022-08-02)
PROC: 02HV33Z Insertion of Infusion Device into Superior Vena Cava, Percutaneous Approach (ICD-10-PCS; 2022-08-04)
PROC: B548ZZA Ultrasonography of Superior Vena Cava, Guidance (ICD-10-PCS; 2022-08-04)
DX: A41.9 Sepsis, unspecified organism (principal); E43 Unspecified severe protein-calorie malnutrition; L89.313 Pressure ulcer of right buttock, stage 3; L89.153 Pressure ulcer of sacral region, stage 3; G92.8 Other toxic encephalopathy; N17.0 Acute kidney failure with tubular necrosis; K26.4 Chronic or unspecified duodenal ulcer with hemorrhage; K29.31 Chronic superficial gastritis with bleeding; N39.0 Urinary tract infection, site not specified; N17.9 Acute kidney failure, unspecified; M86.9 Osteomyelitis, unspecified; Z68.43 Body mass index [BMI] 50.0-59.9, adult; L97.419 Non-pressure chronic ulcer of right heel and midfoot with unspecified severity; E87.6 Hypokalemia; E83.51 Hypocalcemia; E11.42 Type 2 diabetes mellitus with diabetic polyneuropathy; E78.00 Pure hypercholesterolemia, unspecified; E11.22 Type 2 diabetes mellitus with diabetic chronic kidney disease; E11.649 Type 2 diabetes mellitus with hypoglycemia without coma; E66.01 Morbid (severe) obesity due to excess calories; E11.51 Type 2 diabetes mellitus with diabetic peripheral angiopathy without gangrene; G40.909 Epilepsy, unspecified, not intractable, without status epilepticus; D50.9 Iron deficiency anemia, unspecified; E11.69 Type 2 diabetes mellitus with other specified complication; I12.9 Hypertensive chronic kidney disease with stage 1 through stage 4 chronic kidney disease, or unspecified chronic kidney disease; N18.9 Chronic kidney disease, unspecified; K29.80 Duodenitis without bleeding; E11.621 Type 2 diabetes mellitus with foot ulcer; Z74.01 Bed confinement status; Z79.4 Long term (current) use of insulin; Z79.899 Other long term (current) drug therapy; Z86.73 Personal history of transient ischemic attack (TIA), and cerebral infarction without residual deficits; Z90.710 Acquired absence of both cervix and uterus; Z20.822 Contact with and (suspected) exposure to COVID-19
CPT/HCPCS: 36415; 36573; 70496; 70498; 71045; 80048; 80053; 80061; 80202; 80305; 81003; 82040; 82270; 82550; 82553; 82607; 82728; 82962; 83540; 83550; 83605; 83735; 84100; 84134; 84145; 84484; 85014; 85018; 85025; 85044; 85651; 86850; 86900; 86920; 87186; 87426; 88305; 93005; 93970; 99291; C1725; C1893; C9113; J0696; J1650; J1815; J1953; J2405; J2543; J3370; J3490; J7030; J7060; P9016; Q9967

== ENCOUNTER → 2023-03-22 | Outpatient (CLI) | payer MEDICARE, MEDICAID ==
[~2023-03-22] MED LIST changes: +ALBU2.5V13 IH; +AMIO400T11 GT; +ASCO500C15 GT; +ASPI-1497 GT; +BUDE0.5A3 IH; +CLON0.1T GT; -FURO20TA4 PO; -HYDR-459 PO; -INSU100V37 SQ; +IPRA3AMP31 IH; +KEPP500 GT; +LACT10SO81 GT; +LANTUSUD SUBCUT; +LIP40 GT; +MERO500V22 IV; +METH-371 PO; +METO-539 GT; +METO5VIA IV; +MULT-230 GT; +NUTR1PAC14 GT; +ONDA4VIA22 IJ; +PROT40 IVP; +SODI62.58 IV; +SUCR1TAB GT; -SULF1TAB47 PO; -TC025C15 TOP; +TOPUD GT; -TRAZ-252 PO; +ZINC113C10 TP; +ZINC1CAP2 GT; +[UNRECOGNIZED DRUG - CODE] GT; +[UNRECOGNIZED DRUG - CODE] IV; +[UNRECOGNIZED DRUG - CODE] IV
== END | disposition home or self-care (01) ==
LOC: CT 09:42
PROVIDERS: ATTEND Internal Medicine Critical Care Medicine
DX: S31.109A Unspecified open wound of abdominal wall, unspecified quadrant without penetration into peritoneal cavity, initial encounter (principal); L02.211 Cutaneous abscess of abdominal wall; I51.7 Cardiomegaly; J98.11 Atelectasis; J90 Pleural effusion, not elsewhere classified; L89.899 Pressure ulcer of other site, unspecified stage; X58.XXXA Exposure to other specified factors, initial encounter; Y93.89 Activity, other specified; Y92.89 Other specified places as the place of occurrence of the external cause; Y99.8 Other external cause status
CPT/HCPCS: 74178; Q9967